=== PATIENT | female | born 2000 | race Caucasian/White ===

== ENCOUNTER 2020-12-04 02:51 | Emergency (ER) | payer OTHER ==
[2020-12-04] MEDS ORDERED: HYDROcodone/Acetaminophen 5/325 mg Tablet ONE (03:17)
[2020-12-04] MEDS ORDERED: predniSONE 20 MG TAB ONE (03:18)
[2020-12-04] MEDS ORDERED: Ibuprofen 200 MG TAB ONE (03:18)
[2020-12-04] MEDS ORDERED: Ondansetron ODT 4 MG TAB ONE (03:22)
== END 2020-12-04 03:44 | disposition home or self-care (01) ==
LOC: ERS 02:51
DX: R51.9 Headache, unspecified (principal)
CPT/HCPCS: 99283; J7512; Q0162